=== PATIENT | male | born 1945 | race Caucasian/White ===

== ENCOUNTER 2020-04-23 06:03 | Inpatient (IN) | payer OTHER ==
[2020-04-21 12:15] LABS: APPEARANCE,URINE Clear (CLEAR); BILIRUBIN,URINE Negative (NEGATIVE); COLOR,URINE Yellow (YELLOW); GLUCOSE, URINE (UA) Negative (NEGATIVE); KETONES,URINE Negative (NEGATIVE); LEUKOCYTE ESTERASE ,URINE Negative (NEGATIVE); NITRATE,URINE Negative (NEGATIVE); OCCULT BLOOD,URINE Negative (NEGATIVE); PROTEIN,URINE Negative (NEGATIVE); UROBILINOGEN,URINE 0.2 mg/dL (0.2-1.0)
[2020-04-21 12:22] LABS: CREATININE 1.2 mg/dL (0.5-1.5); POTASSIUM 5.5 mmol/L (3.5-5.1)
[2020-04-21 12:35] LABS: PARTIAL THROMBOPLASTIN TIME 29.2 SEC (26.3-35.5); PROTHROMBIN TIME 10.8 SEC (9.6-11.6)
--- NOTE | 2020-04-22 09:05 | NUR ---
report called chato nugent for dr espinoza and reported on abnormals for bmp and chest x ray. received new orders to instruct patient to stop potassium supplement and that office will be calling in a script for cayden 15gms. repeat bmp in am
[2020-04-22 10:10] VITALS: BP 106/60
--- NOTE | 2020-04-22 11:30 | NUR ---
CLARIFICATION CALLED KAILA SIDDIQUI FOR DR CARO FOR CLARIFICATION ON LASIX. PT TO HOLD LASIX TOMORROW MORNING AND HE WAS ALLSO INFORMED NO CBC WAS ORDERED. NO NEW ORDERS AT THIS TIME GIVEN.
[~2020-04-23] VITALS: Ht 172.7 cm; Wt 73.5 kg
[~2020-04-23 06:03] MED LIST: CETI10CA5 PO; FURO-152 PO; NITR0.4T50 SL; POTA20TA12 PO; SODPOLY15G PO; ibuprofen PO
[2020-04-23 06:15] VITALS: BP 103/63
[2020-04-23 06:35] LABS: CREATININE 1.3 mg/dL (0.5-1.5); POTASSIUM 5.8 mmol/L (3.5-5.1)
--- NOTE | 2020-04-23 07:00 | NUR ---
KAILA SIDDIQUI NOTIFIED OF ABNORMAL NA, POTASIUM. NEW ORDER FOR KAYEXALATE PO 15 GRAMS ONE DOSE NOW.
[2020-04-23] MEDS ORDERED: SODIUM POLYSTYRENE SULFONATE 15 GM/60 ML ML PO SCH (07:06)
[2020-04-23] MEDS ORDERED: SODIUM POLYSTYRENE SULFONATE 15 GM/60 ML ML ONE (07:10)
[2020-04-23] MEDS ORDERED: SODIUM CHLORIDE 0.9% 1000ML 1,000 ML IV ONE (07:34)
[2020-04-23] MEDS ORDERED: IOHEXOL-350 50ML VIAL IV ONE (07:40)
[2020-04-23] MEDS ORDERED: IOHEXOL 350 MG/ML 100ML INFUS..BTL IV ONE (07:40)
[2020-04-23] MEDS ORDERED: NITROGLYCERIN 2 MG/VIAL VIAL IV ONE (07:40)
[2020-04-23] MEDS ORDERED: HEPARIN SODIUM 1000UNIT/ML 10ML VIAL ONE ×3 (07:40→14:54)
[2020-04-23] MEDS ORDERED: MIDAZOLAM HCL 1 MG/ML 2ML VIAL ONE ×2 (07:41→09:03)
[2020-04-23] MEDS ORDERED: LIDOCAINE HCL 2% 20ML ONE (07:41)
[2020-04-23] MEDS ORDERED: FENTANYL CITRATE PF 50 MCG/1 ML 2ML VIAL ONE (07:41)
[2020-04-23] MEDS ORDERED: BIVALIRUDIN 250 MG/VIAL IV ONE (07:53)
[2020-04-23] MEDS ORDERED: ATROPINE SULFATE 0.1 MG/ML 10 ML SYG IVP ONE ×4 (08:10→10:24)
[2020-04-23] MEDS ORDERED: DOPAMINE HCL 400 MG/D5%-WATER 250 ML IV ONE (08:10)
[2020-04-23] MEDS ORDERED: ROCURONIUM BROMIDE 10MG/1ML 5ML VL ONE ×3 (08:17→12:53)
[2020-04-23] MEDS ORDERED: PROPOFOL 10 MG/ML 20ML VIAL IV ONE ×2 (08:17→10:05)
[2020-04-23] MEDS ORDERED: PROPOFOL 1000 MG/100 ML 0 ML IV ONE (08:17)
[2020-04-23] MEDS ORDERED: CEFAZOLIN SODIUM 1 GM VIAL ONE (08:36)
[2020-04-23] MEDS ORDERED: PAPAVERINE HCL 30 MG/ML 2ML VIAL ONE (08:36)
[2020-04-23] MEDS ORDERED: ONDANSETRON HCL 4 MG/2 ML VIAL ONE (08:40)
[2020-04-23] MEDS ORDERED: CEFAZOLIN SODIUM 1 GM VIAL IVP PRN (08:45)
[2020-04-23 08:53] LABS: HEMATOCRIT 38.3 % (42-54); MEAN CORPUSCULAR HEMOGLOBIN 31.7 pg (27.0-33.0); MEAN CORPUSCULAR HGB CONC 33.9 g/dL (32.0-36.0); MEAN CORPUSCULAR VOLUME 93.4 fL (79-99); RED BLOOD CELL COUNT(AUTO) 4.1 MIL/uL (4.50-6.20); RED CELL DISTRIBUTION WIDTH 14.1 % (11.0-15.5); WHITE BLOOD COUNT (AUTO) 25.3 K/uL (4.8-10.8)
[2020-04-23] MEDS ORDERED: NITROGLYCERIN 50 MG/D5% WATER 1 BOT ONE (08:53)
[2020-04-23 09:01] LABS: HEMOGLOBIN A1C 5.4 % (4.0-6.0)
[2020-04-23] MEDS ORDERED: FENTANYL CITRATE PF 50 MCG/1 ML 20ML VIAL IJ ONE (09:02)
[2020-04-23] MEDS ORDERED: ESMOLOL HCL 10 MG/ML 10 ML VIAL ONE (09:02)
[2020-04-23] MEDS ORDERED: EPINEPHRINE 1 MG/ML AMPULE ONE (09:02)
[2020-04-23] MEDS ORDERED: AMINOCAPROIC ACID 250 MG/ML 20 ML VIAL IV ONE (09:02)
[2020-04-23] MEDS ORDERED: PROTAMINE SULFATE 10 MG/ML 25ML VIAL IV ONE (09:02)
[2020-04-23] MEDS ORDERED: LIDOCAINE PF 2% 5ML ABBOJECT ONE (09:02)
[2020-04-23] MEDS ORDERED: NOREPINEPHRINE BITARTRATE 1 MG/1 ML ML IV ONE ×5 (09:02→14:02)
[2020-04-23] MEDS ORDERED: ROCURONIUM 10MG/1ML SYR 10 MG/ML ML ONE (09:03)
[2020-04-23 09:04] LABS: PARTIAL THROMBOPLASTIN TIME 29.3 SEC (26.3-35.5); PROTHROMBIN TIME 10.8 SEC (9.6-11.6)
[2020-04-23] MEDS ORDERED: KETAMINE 50MG/ML SYRINGE 50 MG/ML DISP.SYRIN IV ONE (09:04)
[2020-04-23 09:07] LABS: ALBUMIN 3.5 g/dL (3.5-5.0); BILIRUBIN,TOTAL 0.8 mg/dL (0.2-1.0); CREATININE 1.2 mg/dL (0.5-1.5); POTASSIUM 4.2 mmol/L (3.5-5.1); TOTAL PROTEIN, SERUM 6.1 g/dL (6.0-8.3)
[2020-04-23] MEDS ORDERED: CEFUROXIME SODIUM 1.5 GM VIAL ONE ×2 (09:18→13:02)
[2020-04-23] MEDS ORDERED: VASOPRESSIN 20 UNITS/ML 1ML VIAL ONE ×2 (09:38→15:36)
[2020-04-23] MEDS ORDERED: SODIUM BICARB 50MEQ 50ML VIAL ONE ×6 (09:47→14:30)
[2020-04-23 09:54] LABS: ABG HCO3 18.1 mmol/L (21.0-28.0); ABG OXYGEN SATURATION 99.2 % (95.0-99.0); ABG PCO2 31 mmHg (35-48)
[2020-04-23] MEDS ORDERED: AMIODARONE HCL 50 MG/ML 3 ML VIAL ONE ×2 (10:00→13:17)
[2020-04-23] MEDS ORDERED: EPINEPHRINE 1 MG/ML 30ML VIAL IJ ONE (10:21)
[2020-04-23] MEDS ORDERED: SODIUM BICARB 8.4% 50ML SYRINGE ONE ×2 (10:25→12:23)
[2020-04-23 10:27] LABS: ABG HCO3 25.8 mmol/L (21.0-28.0); ABG OXYGEN SATURATION 95.3 % (95.0-99.0); ABG PCO2 46 mmHg (35-48)
[2020-04-23] MEDS ORDERED: DELNIDO FORMULA 1 BAG IV ONE (10:36)
[2020-04-23] MEDS ORDERED: DELNIDO FORMULA 2 BAG IV ONE (10:49)
[2020-04-23 11:04] LABS: ABG BASE EXCESS -6.4 mmol/L (-2.0-3.0); ABG HCO3 19.1 mmol/L (21.0-28.0); ABG OXYGEN SATURATION 98.9 % (95.0-99.0); ABG PCO2 38 mmHg (35-48)
[2020-04-23 12:06] LABS: ABG HCO3 20.6 mmol/L (21.0-28.0); ABG OXYGEN SATURATION 98.6 % (95.0-99.0); ABG PCO2 35 mmHg (35-48)
[2020-04-23] MEDS ORDERED: SODIUM CHLORIDE 0.9% 500ML 500 ML IV SCH (12:25)
[2020-04-23] MEDS ORDERED: SODIUM CHLORIDE 0.9% 250 ML IV PRN (12:30)
[2020-04-23] MEDS ORDERED: ACETAMINOPHEN 325 MG TAB PO PRN ×2 (12:30)
[2020-04-23] MEDS ORDERED: NITROGLYCERIN 50 MG/D5% WATER 250 BOT IV SCH (12:30)
[2020-04-23] MEDS ORDERED: TRAMADOL HCL 50 MG TABLET PO PRN ×2 (12:30)
[2020-04-23] MEDS ORDERED: MORPHINE SULFATE 2 MG/ML 1ML SYG IV PRN (12:30)
[2020-04-23] MEDS ORDERED: ACETAMINOPHEN 650 MG SUPPOSITORY RC PRN (12:30)
[2020-04-23] MEDS ORDERED: ALBUMIN (HUMAN) 5% 250 ML IV PRN (12:30)
[2020-04-23] MEDS ORDERED: ONDANSETRON HCL 4 MG/2 ML VIAL IV PRN (12:30)
[2020-04-23] MEDS ORDERED: SODIUM CHLORIDE 0.9% 1000ML 1,000 ML IV SCH (12:30)
[2020-04-23] MEDS ORDERED: SODIUM CHLORIDE 0.9% 10 ML VIAL IVP PRN (12:30)
[2020-04-23] MEDS ORDERED: INSULIN REGULAR, HUMAN 3ML 100 UNIT in SODIUM CHLORIDE 0.9% 99 ML IV SCH ×2 (12:30)
[2020-04-23] MEDS ORDERED: MORPHINE SULFATE 4 MG/1ML SYG IV PRN (12:30)
[2020-04-23] MEDS ORDERED: PROPOFOL 1000 MG/100 ML 100 ML IV PRN (12:30)
[2020-04-23] MEDS ORDERED: MAGNESIUM 2GM PREMIX 50ML 50 ML IV PRN (12:30)
[2020-04-23] MEDS ORDERED: NOREPINEPHRINE 4MG/NS 250ML 250 ML IV PRN (12:30)
[2020-04-23] MEDS ORDERED: EPINEPHRINE 10 MG in DEXTROSE 5%-WATER 250 ML IV PRN (12:30)
[2020-04-23] MEDS ORDERED: AMINOCAPROIC ACID 15,000 MG in SODIUM CHLORIDE 0.9% 250 ML IV SCH (12:30)
[2020-04-23] MEDS ORDERED: GLUCAGON 1MG KIT 1 MG ML IM PRN (12:30)
[2020-04-23] MEDS ORDERED: POTASSIUM PHOS 15 mMOL+NS250ML 250 ML IV PRN (12:30)
[2020-04-23] MEDS ORDERED: POTASSIUM CHLORIDE 20MEQ/100ML 100 ML IV PRN (12:30)
[2020-04-23 12:41] LABS: ABG BASE EXCESS -4.6 mmol/L (-2.0-3.0); ABG HCO3 18.1 mmol/L (21.0-28.0); ABG OXYGEN SATURATION 98.7 % (95.0-99.0); ABG PCO2 27 mmHg (35-48)
[2020-04-23] MEDS ORDERED: ROPIVACAINE 0.5% 5MG/ML 30ML IJ ONE (12:46)
[2020-04-23] MEDS ORDERED: Q-PUMP 1 EACH MISC SCH (13:15)
[2020-04-23 13:35] LABS: ABG BASE EXCESS -3.3 mmol/L (-2.0-3.0); ABG HCO3 21.6 mmol/L (21.0-28.0); ABG OXYGEN SATURATION 98.6 % (95.0-99.0); ABG PCO2 38 mmHg (35-48)
[2020-04-23 14:16] LABS: ABG BASE EXCESS -6.5 mmol/L (-2.0-3.0); ABG HCO3 15.5 mmol/L (21.0-28.0); ABG OXYGEN SATURATION 98.5 % (95.0-99.0); ABG PCO2 22 mmHg (35-48)
[2020-04-23] MEDS ORDERED: ROPIVACAINE 0.2% 2MG/ML 100ML VIAL IJ ONE (15:00)
[2020-04-23 15:03] LABS: ABG BASE EXCESS -2.6 mmol/L (-2.0-3.0); ABG HCO3 22.9 mmol/L (21.0-28.0); ABG OXYGEN SATURATION 98.2 % (95.0-99.0); ABG PCO2 42 mmHg (35-48)
[2020-04-23] MEDS ORDERED: EPHEDRINE SULFATE 50 MG/ML AMPULE ONE (15:13)
[2020-04-23] MEDS ORDERED: MIDAZOLAM HCL 1 MG/ML 5ML VIAL ONE (15:47)
[2020-04-23 15:53] LABS: ABG HCO3 12.2 mmol/L (21.0-28.0); ABG OXYGEN SATURATION 98.5 % (95.0-99.0); ABG PCO2 17 mmHg (35-48)
[2020-04-23 16:51] LABS: ABG BASE EXCESS -7.3 mmol/L (-2.0-3.0); ABG HCO3 13.5 mmol/L (21.0-28.0); ABG OXYGEN SATURATION 98.6 % (95.0-99.0); ABG PCO2 < 15 mmHg (35-48)
[2020-04-23] MEDS ORDERED: COAGULATION FACTOR VIIA RECOMB 1 MG VIAL IV SCH ×2 (17:00→18:45)
[2020-04-23 17:24] LABS: HEMATOCRIT 25.8 % (42-54); MEAN CORPUSCULAR HEMOGLOBIN 30.6 pg (27.0-33.0); MEAN CORPUSCULAR HGB CONC 33.3 g/dL (32.0-36.0); MEAN CORPUSCULAR VOLUME 91.8 fL (79-99); PLATELET COUNT (AUTO) 21 K/uL (130-400); RED BLOOD CELL COUNT(AUTO) 2.81 MIL/uL (4.50-6.20); RED CELL DISTRIBUTION WIDTH 14.4 % (11.0-15.5); WHITE BLOOD COUNT (AUTO) 6.9 K/uL (4.8-10.8)
[2020-04-23] MEDS ORDERED: DEXTROSE 50%-WATER 50 ML DISP.SYRIN IV ONE (17:28)
[2020-04-23] MEDS ORDERED: CEFAZOLIN SODIUM 1 GM VIAL IV SCH (17:30)
[2020-04-23 17:39] LABS: PLATELET COUNT (AUTO) 21 K/uL (130-400)
[2020-04-23 17:56] LABS: PLATELET MORPHOLOGY COMMENT MARKED DECREASE
[2020-04-23 18:05] LABS: FIBRINOGEN 45 mg/dL (180-350); INR > 7.00 (0.85-1.15); PARTIAL THROMBOPLASTIN TIME > 120.0 SEC (26.3-35.5); PROTHROMBIN TIME > 63.0 SEC (9.6-11.6)
[2020-04-23 18:06] LABS: D-DIMER > 10000 ng/mL (0-500)
[2020-04-23 18:10] LABS: ABG BASE EXCESS -16.5 mmol/L (-2.0-3.0); ABG HCO3 8.1 mmol/L (21.0-28.0); ABG OXYGEN SATURATION 98.4 % (95.0-99.0); ABG PCO2 17 mmHg (35-48)
[2020-04-23 19:00] VITALS: BP_SYST 105; BP_SYST 75; BP_DIAS 43; BP_DIAS 53
[2020-04-23 19:02] LABS: ALBUMIN 0.6 g/dL (3.5-5.0); BILIRUBIN,TOTAL 0.6 mg/dL (0.2-1.0); CHLORIDE 116 mmol/L (101-111); CREATININE 1.8 mg/dL (0.5-1.5); GLOMERULAR FILTR. RATE CALC 40 mL/min (>60); GLUCOSE,RANDOM 81 mg/dL (70-105); PHOSPHORUS 6.4 mg/dL (2.5-4.9); POTASSIUM 4.9 mmol/L (3.5-5.1); SODIUM SERUM 159 mmol/L (136-145); UREA NITROGEN, BLOOD 16 mg/dL (7-18)
[2020-04-23 19:11] LABS: ALANINE AMINOTRANSFERASE 727 U/L (12-78); ASPARTATE AMINOTRANSFERASE 962 U/L (10-37); CARBON DIOXIDE 9 mmol/L (21-32)
[2020-04-23 19:18] LABS: TOTAL PROTEIN, SERUM < 2.0 g/dL (6.0-8.3)
[2020-04-23 19:28] LABS: ABG BASE EXCESS -19.1 mmol/L (-2.0-3.0); ABG HCO3 7.6 mmol/L (21.0-28.0); ABG OXYGEN SATURATION 98.5 % (95.0-99.0); ABG PCO2 21 mmHg (35-48)
--- NOTE | 2020-04-23 19:35 | NUR ---
POST -OP NARRATIVE PT ARRIVED AT 1640...INTUBATED-HYPOTENSIVE.BLEEDING. IABP IN PLACE RIGHT GROIN. ECMO CATH 1 IN EACH FEMORAL ACCESS. AV EPICARDIAL PACER ON RATE SET AT 20. PLEASE REFER TO BLOOD TRANSFUSION RECORDS FOR VS. EPI DRIP INFUSING AT 0.15MCG/KG/MIN... LEVOPHED DRIP AT 20MCG/MIN VIA LEFT SUBCLAVIAN VEIN CENTRAL LINE. OSORIO CATH TO BEDSIDE DRAINAGE WITH CLEAR JOSÉ LUIS URINE. 2 MEDIASTINAL DAWOOD CHEST TUBES . 1 LARGE PLUERAL CHEST TUBE TO MEDIASTINUM. PLEURAL CHEST TUBE DRAINING THE MOST BLOOD. DR CALDERON AND DR FIGUEREDO WERE AT THE BEDSIDE DIRECTING CARE. PLEASE REFER TO ORDERS. REFER TO TRANSFUSION RECORDS FOR BLOOD PRODUCTS GIVEN. DR CARO WAS ALSO AT THE BEDSIDE. JUAN JOSE FUNGP AWARE OF PT STATUS. DR CARO ADVANCED THE RT GROIN IABP CATHETER AND CONFIRMED PLACEMENT AFTER WITH A CXR. HAND OFF REPORT GIVEN TO KAILA WHITE RN AND TO SILVIO CLARK RN
[2020-04-23 20:00] VITALS: BP_SYST 112; BP_SYST 95; BP_DIAS 43; BP_DIAS 56
[2020-04-23 20:07] LABS: MEAN CORPUSCULAR HEMOGLOBIN 30.5 pg (27.0-33.0); MEAN CORPUSCULAR HGB CONC 33.9 g/dL (32.0-36.0); MEAN CORPUSCULAR VOLUME 90.1 fL (79-99); NUCLEATED RED BLOOD CELLS 0.7 % (0.0-0.19); RED BLOOD CELL COUNT(AUTO) 2.13 MIL/uL (4.50-6.20); RED CELL DISTRIBUTION WIDTH 14.9 % (11.0-15.5); WHITE BLOOD COUNT (AUTO) 9.8 K/uL (4.8-10.8)
[2020-04-23 20:11] LABS: ABG BASE EXCESS -10.2 mmol/L (-2.0-3.0); ABG HCO3 13.3 mmol/L (21.0-28.0); ABG OXYGEN SATURATION 98.4 % (95.0-99.0); ABG PCO2 21 mmHg (35-48)
[2020-04-23] MEDS ORDERED: CALCIUM GLUCONATE 1 GM/10 ML VIAL IV ONE (20:12)
[2020-04-23 20:13] LABS: HEMATOCRIT 19.2 % (42-54)
[2020-04-23 20:35] LABS: FIBRINOGEN 122 mg/dL (180-350)
[2020-04-23 20:39] LABS: INR 1.38 (0.85-1.15); PROTHROMBIN TIME 14.7 SEC (9.6-11.6)
[2020-04-23 20:43] LABS: PARTIAL THROMBOPLASTIN TIME > 120.0 SEC (26.3-35.5); PLATELET COUNT (AUTO) 87 K/uL (130-400)
[2020-04-23 20:44] LABS: D-DIMER > 10000 ng/mL (0-500)
[2020-04-23] MEDS: CALCIUM GLUCONATE 1 GM in SODIUM CHLORIDE 0.9% 50 ML IV PRN ×6 (20:45→23:55)
[2020-04-23] MEDS: SODIUM BICARB 50MEQ 50ML VIAL IV PRN ×10 (20:45→23:26)
[2020-04-23 21:00] VITALS: BP_SYST 62; BP_SYST 88; BP_DIAS 31; BP_DIAS 47
[2020-04-23] MEDS ORDERED: FUROSEMIDE 10 MG/ML 2ML VIAL IV SCH (21:00)
[2020-04-23] MEDS ORDERED: FAMOTIDINE/PF 20 MG/2 ML VIAL IV SCH (21:00)
[2020-04-23] MEDS ORDERED: ATORVASTATIN CALCIUM 20 MG TABLET PO SCH (21:00)
[2020-04-23 21:04] LABS: ABG BASE EXCESS -3.6 mmol/L (-2.0-3.0); ABG HCO3 17.3 mmol/L (21.0-28.0); ABG OXYGEN SATURATION 98.7 % (95.0-99.0); ABG PCO2 16 mmHg (35-48)
[2020-04-23] MEDS ORDERED: PROTAMINE SULFATE 10 MG/ML 5 ML VIAL ONE (21:11)
[2020-04-23] MEDS ORDERED: PROTAMINE SULFATE 10 MG/ML 5 ML VIAL IVP SCH (21:15)
[2020-04-23] MEDS: CEFAZOLIN SODIUM 1 GM VIAL IV SCH (21:29)
[2020-04-23] MEDS ORDERED: PROTAMINE SULFATE 100 MG in SODIUM CHLORIDE 0.9% 50 ML IVP SCH (21:30)
[2020-04-23 22:00] VITALS: BP_SYST 104; BP_SYST 65; BP_DIAS 35; BP_DIAS 48
[2020-04-23 22:37] LABS: ABG BASE EXCESS -10.6 mmol/L (-2.0-3.0); ABG HCO3 10.9 mmol/L (21.0-28.0); ABG OXYGEN SATURATION 98.5 % (95.0-99.0); ABG PCO2 16 mmHg (35-48)
[2020-04-23 23:00] VITALS: BP_SYST 134; BP_SYST 82; BP_DIAS 51; BP_DIAS 54
[2020-04-23] MEDS ORDERED: DEXTROSE 50%-WATER 25 GM/50 ML VIAL ONE (23:11)
[2020-04-23 23:19] LABS: ABG BASE EXCESS -3.6 mmol/L (-2.0-3.0); ABG HCO3 16.9 mmol/L (21.0-28.0); ABG OXYGEN SATURATION 98.1 % (95.0-99.0); ABG PCO2 19 mmHg (35-48)
[2020-04-23] MEDS: DEXTROSE 50%-WATER 50 ML DISP.SYRIN IV PRN (23:27)
[2020-04-23 23:34] LABS: HEMATOCRIT 27.2 % (42-54); MEAN CORPUSCULAR HEMOGLOBIN 29.5 pg (27.0-33.0); MEAN CORPUSCULAR HGB CONC 33.8 g/dL (32.0-36.0); MEAN CORPUSCULAR VOLUME 87.2 fL (79-99); NUCLEATED RED BLOOD CELLS 1.9 % (0.0-0.19); RED BLOOD CELL COUNT(AUTO) 3.12 MIL/uL (4.50-6.20); RED CELL DISTRIBUTION WIDTH 14.2 % (11.0-15.5); WHITE BLOOD COUNT (AUTO) 10.4 K/uL (4.8-10.8)
[2020-04-23] MEDS: NOREPINEPHRINE BITARTRATE 8 MG in SODIUM CHLORIDE 0.9% 250 ML IV SCH (23:53)
[2020-04-23 23:54] LABS: INR 1.84 (0.85-1.15); PARTIAL THROMBOPLASTIN TIME 62.2 SEC (26.3-35.5); PROTHROMBIN TIME 19.4 SEC (9.6-11.6)
[2020-04-24] VITALS (8 sets, daily range): BP systolic 49–119; BP diastolic 37–54
[2020-04-24 00:11] LABS: ABG BASE EXCESS -1.2 mmol/L (-2.0-3.0); ABG HCO3 16.7 mmol/L (21.0-28.0); ABG OXYGEN SATURATION 98.1 % (95.0-99.0); ABG PCO2 < 15 mmHg (35-48)
[2020-04-24 00:12] LABS: FIBRINOGEN 65 mg/dL (180-350)
[2020-04-24 00:19] LABS: D-DIMER > 10000 ng/mL (0-500)
[2020-04-24 00:20] LABS: PLATELET COUNT (AUTO) 60 K/uL (130-400)
[2020-04-24] MEDS ORDERED: PROTAMINE SULFATE 10 MG/ML 5 ML VIAL IVP SCH (00:30)
[2020-04-24] MEDS ORDERED: PROTAMINE SULFATE 10 MG/ML 25ML VIAL IV ONE (00:43)
[2020-04-24] MEDS: CALCIUM GLUCONATE 1 GM in SODIUM CHLORIDE 0.9% 50 ML IV PRN ×5 (00:56→05:56)
[2020-04-24 01:09] LABS: ABG HCO3 8.9 mmol/L (21.0-28.0); ABG OXYGEN SATURATION 98.2 % (95.0-99.0); ABG PCO2 < 15 mmHg (35-48)
[2020-04-24] MEDS ORDERED: SODIUM BICARB 8.4% 50ML SYRINGE ONE (01:16)
[2020-04-24] MEDS: SODIUM BICARB 50MEQ 50ML VIAL IV PRN ×9 (01:18→07:26)
[2020-04-24 02:22] LABS: ABG BASE EXCESS -9.2 mmol/L (-2.0-3.0); ABG HCO3 19.9 mmol/L (21.0-28.0); ABG OXYGEN SATURATION 97.9 % (95.0-99.0); ABG PCO2 59 mmHg (35-48)
[2020-04-24 03:11] LABS: ABG BASE EXCESS -4.2 mmol/L (-2.0-3.0); ABG HCO3 25.4 mmol/L (21.0-28.0); ABG OXYGEN SATURATION 95.4 % (95.0-99.0); ABG PCO2 76 mmHg (35-48)
[2020-04-24] MEDS ORDERED: CALCIUM GLUCONATE 1 GM/10 ML VIAL IV ONE ×3 (03:16→07:24)
[2020-04-24 03:24] LABS: HEMATOCRIT 23.6 % (42-54); MEAN CORPUSCULAR HEMOGLOBIN 34.6 pg (27.0-33.0); MEAN CORPUSCULAR HGB CONC 35.6 g/dL (32.0-36.0); MEAN CORPUSCULAR VOLUME 97.1 fL (79-99); NUCLEATED RED BLOOD CELLS 4.1 % (0.0-0.19); RED BLOOD CELL COUNT(AUTO) 2.43 MIL/uL (4.50-6.20); RED CELL DISTRIBUTION WIDTH 17.6 % (11.0-15.5); WHITE BLOOD COUNT (AUTO) 8.7 K/uL (4.8-10.8)
[2020-04-24] MEDS: NOREPINEPHRINE BITARTRATE 8 MG in SODIUM CHLORIDE 0.9% 250 ML IV SCH (03:35)
[2020-04-24 03:38] LABS: FIBRINOGEN 246 mg/dL (180-350); INR 1.24 (0.85-1.15); PARTIAL THROMBOPLASTIN TIME 46.4 SEC (26.3-35.5); PROTHROMBIN TIME 13.3 SEC (9.6-11.6)
[2020-04-24 03:45] LABS: ALBUMIN 1.7 g/dL (3.5-5.0); BILIRUBIN,TOTAL 1.3 mg/dL (0.2-1.0); CREATININE 3.1 mg/dL (0.5-1.5); PHOSPHORUS 8.5 mg/dL (2.5-4.9); POTASSIUM 4.3 mmol/L (3.5-5.1); TOTAL PROTEIN, SERUM 4.2 g/dL (6.0-8.3)
[2020-04-24 04:12] LABS: D-DIMER > 10000 ng/mL (0-500)
[2020-04-24 04:24] LABS: PLATELET COUNT (AUTO) 142 K/uL (130-400)
[2020-04-24 04:27] LABS: ABG BASE EXCESS 1.6 mmol/L (-2.0-3.0); ABG HCO3 25.7 mmol/L (21.0-28.0); ABG OXYGEN SATURATION 98.1 % (95.0-99.0); ABG PCO2 38 mmHg (35-48)
[2020-04-24] MEDS ORDERED: DEXTROSE 50%-WATER 25 GM/50 ML VIAL ONE (04:29)
[2020-04-24] MEDS: DEXTROSE 50%-WATER 50 ML DISP.SYRIN IV PRN (04:30)
[2020-04-24] MEDS ORDERED: DEXTROSE 5%-WATER 1,000 ML IV ONE (04:30)
[2020-04-24] MEDS ORDERED: ALBUMIN (HUMAN) 5% 250 ML IV ONE (05:19)
[2020-04-24 05:44] LABS: ABG BASE EXCESS -5.8 mmol/L (-2.0-3.0); ABG HCO3 19.9 mmol/L (21.0-28.0); ABG PCO2 40 mmHg (35-48)
[2020-04-24] MEDS: CEFAZOLIN SODIUM 1 GM VIAL IV SCH (05:56)
--- NOTE | 2020-04-24 06:30 | NUR ---
DR. KVNG CALDERON UPDATED AT THIS TIME WITH LATEST LABS, VS ASBP 60-70, FLOW ON ECMO 2.2, I&OS NO URINE OUTPUT SINCE 3 AM, PUPILS DILATED WITH NO REACTION. HE WAS MADE AWARE THAT PT IS SWOLLEN AND HAS COPIOUS AMOUNTS OF PINK FROTHY SPUTUM ORDERS TO TELL MASTER MERCHANDISER TO PLACE FILTER TO REMOVE FLUID AT 100ML/HR RO MASTER MERCHANDISER MADE AWARE.
[2020-04-24 07:20] LABS: ABG BASE EXCESS -2.6 mmol/L (-2.0-3.0); ABG HCO3 15.2 mmol/L (21.0-28.0); ABG OXYGEN SATURATION 98.4 % (95.0-99.0); ABG PCO2 < 15 mmHg (35-48)
--- NOTE | 2020-04-24 07:48 | NUR ---
PT CONDITION GRIM. I HAVE NOTIFIED AND DAUGHTER TO COME TO SEE PT.
--- NOTE | 2020-04-24 08:30 | NUR ---
PT DAUGHTER FRANKY REES AT BEDSIDE WITH PT. SHE HAS EXPRESSED THAT PT BE DNR. DR CARO AT BEDSIDE WITH HER
[2020-04-24 08:39] LABS: ABG HCO3 13.1 mmol/L (21.0-28.0); ABG OXYGEN SATURATION 98.5 % (95.0-99.0); ABG PCO2 22 mmHg (35-48)
[2020-04-24] MEDS ORDERED: ASPIRIN 325MG EC TAB 325 MG TABLET.DR PO SCH (09:00)
--- NOTE | 2020-04-24 09:00 | NUR ---
PER FAMILY WISHES PT TO BE DNR/WITHDRAWAL OF LIFE SUPPORT. PENDING ARRIVAL OF MORE FAMILY MEMBERS FORM SIGNED BY DAUGHTER FRANKY REES.
--- NOTE | 2020-04-24 09:06 | NUR ---
DR VANIA ROWLAND FAMILY- FAMILY WISHES TO WITHDRAW LIFE SUPPORT, COMFORT MEASURES ONLY. AND DAUGHTERS AT BEDSIDE. WAITING FOR OTHER FAMILY MEMBERS TO ARRIVE BEFORE WITHDRAWAL
[2020-04-24] MEDS ORDERED: LORAZEPAM 2 MG/ML 1 ML VIAL IVP PRN (09:15)
[2020-04-24] MEDS ORDERED: MORPHINE SULFATE 2 MG/ML 1ML SYG IVP PRN (09:15)
--- NOTE | 2020-04-24 09:30 | NUR ---
PT EXTUBATED ALL LIFE SUPPORT MEASURES TURNED OFF. ECMO OFF. IABP OFF. PRESSORS OFF. GIVEN MORPHINE AND ATIVAN PRIOR TO EXTUBATION. DR CARO AND PT FAMILY AT BEDSIDE
--- NOTE | 2020-04-24 09:31 | NUR ---
PT -FAMILY AT BEDSIDE
--- NOTE | 2020-04-24 10:48 | NUR ---
HEATHER PLAN PATIENT S/P SURGERY PENDING FAMILY FOR WITHDRAW OF CARE 75/37 RR 6. Addendum: 04/24/20 at 1049 by SUSHIL VALIENTE RN CM Amended: Links added.
--- NOTE | 2020-04-24 10:57 | NUR ---
patient this AM. Addendum: 04/24/20 at 1058 by KEYON GAMING, PT PT Amended: Links added.
--- NOTE | 2020-04-24 11:00 | NUR ---
TO [facility]
== END 2020-04-24 09:31 | disposition expired | DRG 3 ==
LOC: DAH 06:03 → DAHIP 06:04 → PAH.CVR 19:36
PROVIDERS: ADMIT Internal Medicine; ATTEND Internal Medicine
PROC: 06BQ4ZZ Excision of Left Saphenous Vein, Percutaneous Endoscopic Approach (ICD-10-PCS; 2020-04-23)
PROC: 06BP4ZZ Excision of Right Saphenous Vein, Percutaneous Endoscopic Approach (ICD-10-PCS; 2020-04-23)
PROC: 03QY0ZZ Repair Upper Artery, Open Approach (ICD-10-PCS; 2020-04-23)
PROC: 30233K1 Transfusion of Nonautologous Frozen Plasma into Peripheral Vein, Percutaneous Approach (ICD-10-PCS; 2020-04-23)
PROC: 30233N1 Transfusion of Nonautologous Red Blood Cells into Peripheral Vein, Percutaneous Approach (ICD-10-PCS; 2020-04-23)
PROC: 30233R1 Transfusion of Nonautologous Platelets into Peripheral Vein, Percutaneous Approach (ICD-10-PCS; 2020-04-23)
PROC: 4A023N7 Measurement of Cardiac Sampling and Pressure, Left Heart, Percutaneous Approach (ICD-10-PCS; 2020-04-23)
PROC: B2111ZZ Fluoroscopy of Multiple Coronary Arteries using Low Osmolar Contrast (ICD-10-PCS; 2020-04-23)
PROC: B2151ZZ Fluoroscopy of Left Heart using Low Osmolar Contrast (ICD-10-PCS; 2020-04-23)
PROC: 5A1221Z Performance of Cardiac Output, Continuous (ICD-10-PCS; 2020-04-23)
PROC: B24BZZ4 Ultrasonography of Heart with Aorta, Transesophageal (ICD-10-PCS; 2020-04-23)
PROC: 02RF08Z Replacement of Aortic Valve with Zooplastic Tissue, Open Approach (ICD-10-PCS; principal; 2020-04-23 08:59)
PROC: 5A1522G Extracorporeal Oxygenation, Membrane, Peripheral Veno-arterial (ICD-10-PCS; 2020-04-23 08:59)
PROC: 5A02210 Assistance with Cardiac Output using Balloon Pump, Continuous (ICD-10-PCS; 2020-04-23 08:59)
PROC: 02100Z9 Bypass Coronary Artery, One Artery from Left Internal Mammary, Open Approach (ICD-10-PCS; 2020-04-23 08:59)
PROC: 021209W Bypass Coronary Artery, Three Arteries from Aorta with Autologous Venous Tissue, Open Approach (ICD-10-PCS; 2020-04-23 08:59)
DX: I25.110 Atherosclerotic heart disease of native coronary artery with unstable angina pectoris (principal); I50.43 Acute on chronic combined systolic (congestive) and diastolic (congestive) heart failure; I97.710 Intraoperative cardiac arrest during cardiac surgery; I35.0 Nonrheumatic aortic (valve) stenosis; I45.10 Unspecified right bundle-branch block; Y83.8 Other surgical procedures as the cause of abnormal reaction of the patient, or of later complication, without mention of misadventure at the time of the procedure; R57.0 Cardiogenic shock; Z66 Do not resuscitate
CPT/HCPCS: 36415; 36600; 71045; 80048; 80053; 80061; 81003; 82330; 82435; 82803; 82947; 83036; 83605; 83735; 83880; 84100; 84132; 84295; 85018; 85027; 85378; 85384; 85610; 85730; 86850; 86900; 86901; 86922; 86927; 88305; 88311; 93005; 93306; 93313; 93318; 93456; 93460; 94002; 94003; 99156; 99157; A4606; A7048; C1894; G0378; J0171; J0282; J0461; J0583; J0610; J0690; J0697; J1265; J1644; J2001; J2060; J2250; J2405; J2440; J2704; J2720; J2795; J3010; J3490; J7030; J7040; J7050; J7060; J7070; J7120; J7189; P9012; P9016; P9017; P9034; P9045; Q9967